=== PATIENT | female | born 1995 | race Hispanic/Latino ===

== ENCOUNTER 2022-01-21 10:08 | Outpatient (CLI) | payer OTHER | END 2022-01-21 10:09 | disposition home or self-care (01) | LOC: CSHULT 10:08 | PROVIDERS: ATTEND Family Medicine | DX: O09.893 Supervision of other high risk pregnancies, third trimester (principal); Z3A.30 30 weeks gestation of pregnancy | CPT/HCPCS: 76805 ==

== ENCOUNTER 2022-03-11 15:21 | Inpatient (IN) | payer MEDICAID, OTHER, SELFPAY ==
[2022-03-11 16:01] VITALS: BMI 28.9
[2022-03-11] MEDS ORDERED: Famotidine/PF 20 mg/2ml Vial SLOW IVP PRN (16:01)
[2022-03-11] MEDS ORDERED: Ondansetron PF 4 MG/2 ML Vial IVP PRN ×3 (16:01→22:11)
[2022-03-11] MEDS ORDERED: CEFAZOLIN 2 GM in Sodium Chloride 0.9% 100 ML IVPB SCH (16:01)
[2022-03-11] MEDS ORDERED: Promethazine HCl 25 MG/ML VIAL IM PRN ×3 (16:01→22:11)
[2022-03-11] MEDS ORDERED: hydrALAZINE 20 MG/ML VIAL SLOW IVP PRN ×2 (16:01→22:11)
[2022-03-11] MEDS ORDERED: Lactated Ringer's 1,000 ML IV SCH (16:01)
[2022-03-11] MEDS ORDERED: Bicitra 30 ML UDCUP PO PRN (16:01)
[2022-03-11 16:13] LABS: Hemoglobin 10.9 g/dL (12.0-15.5); Mean Corpuscular HGB CONC 34.5 g/dL (32.0-36.0); Mean Corpuscular Hemoglobin 31.1 pg (27.0-33.0); Mean Platelet Volume 11.6 fl (7.4-10.4); Platelet Count 213 10x3/uL (150-450); RBC Distribution Width 13.2 % (11.5-14.5); Red Blood Cell (RBC) Count 3.51 10x6/uL (3.90-5.03); White Blood Cell (WBC) Count 7.7 10x3/uL (3.5-10.5)
[2022-03-11 16:46] LABS: HBSAg Index 0.19 S/CO (0-0.99); Hep B Surf Ag Non-Reactive S/CO (NonReactive); Syphilis Antibody Nonreactive (Nonreactive); Syphilis Antibody Index 0.03 S/CO (<1.00 Non-Reactive)
[2022-03-11 18:10] LABS: SARS-CoV-2 NAA Rapid Test Not Detected (NotDetected)
[2022-03-11] MEDS ORDERED: PHENYLEPHRINE-NS 100 MCG/ML 10 ML SYRINGE ONE (18:10)
[2022-03-11] MEDS ORDERED: Phenylephrine 40 MG/NS 250 ML 250 ML ONE (18:10)
[2022-03-11] MEDS ORDERED: Bupivacaine 0.75% W/DEXTROSE 8.25% 2 ML AMP ONE (18:10)
[2022-03-11] MEDS ORDERED: Ondansetron PF 4 MG/2 ML Vial ONE (18:10)
[2022-03-11] MEDS ORDERED: Dexamethasone 4 mg/ml Vial ONE (18:10)
[2022-03-11] MEDS ORDERED: Lidocaine 1% PF 10 ML AMP ONE (18:10)
[2022-03-11] MEDS ORDERED: Ketorolac Tromethamine 30 MG/ML VIAL ONE (18:10)
[2022-03-11] MEDS ORDERED: Oxytocin 10 UNITS/ML VIAL ONE (18:10)
[2022-03-11] MEDS ORDERED: ePHEDrine Sulfate 50 MG/10 ML VIAL ONE (18:10)
[2022-03-11] MEDS ORDERED: Morphine PF 10 MG/10 ML VIAL ONE (18:11)
[2022-03-11] MEDS ORDERED: Fentanyl 100 MCG/2 ML VIAL ONE (18:11)
[2022-03-11] MEDS ORDERED: Communication Order-Pharmacy FS SCH (19:15)
[2022-03-11] MEDS ORDERED: Moisturizing Cream (Eucerin) 113 GM JAR TOP PRN (19:15)
[2022-03-11] MEDS ORDERED: diphenhydrAMINE 50 MG/ML VIAL IVP PRN (19:15)
[2022-03-11] MEDS ORDERED: Promethazine HCl 25 MG SUPP PR PRN (19:15)
[2022-03-11] MEDS ORDERED: Naloxone HCl 0.4 mg/ml Vial IVP PRN ×2 (19:15)
[2022-03-11] MEDS ORDERED: Naloxone HCl 0.4 mg/ml Vial IV PRN (19:15)
[2022-03-11] MEDS ORDERED: Misoprostol 200 MCG TAB PR PRN (22:11)
[2022-03-11] MEDS ORDERED: Simethicone Chewable 80 MG TAB PO PRN (22:11)
[2022-03-11] MEDS ORDERED: diphenhydrAMINE 25 MG CAP PO PRN (22:11)
[2022-03-11] MEDS ORDERED: Boostrix 0.5 ML (Tdap) VIAL (>/=7 yrs of age) IM ONE (22:11)
[2022-03-11] MEDS ORDERED: Methylergonovine 0.2 MG/ML VIAL IM PRN (22:11)
[2022-03-11] MEDS ORDERED: Lanolin Ointment 7 GM TUBE TOP PRN (22:11)
[2022-03-11] MEDS ORDERED: NS w/ Oxytocin 30 units 500 ML IV SCH (22:11)
[2022-03-11] MEDS ORDERED: Ferrous Sulfate 325 MG TAB PO SCH (22:30)
[2022-03-11] MEDS ORDERED: Docusate 100 MG CAP PO SCH (22:30)
[2022-03-12] MEDS: Ketorolac Tromethamine 30 MG/ML VIAL IVP SCH ×3 (00:59→12:42)
[2022-03-12] MEDS ORDERED: Ketorolac Tromethamine 30 MG/ML VIAL IVP SCH (01:00)
[2022-03-12 05:32] LABS: Hemoglobin 10.4 g/dL (12.0-15.5); Mean Corpuscular HGB CONC 34.2 g/dL (32.0-36.0); Mean Corpuscular Hemoglobin 30.5 pg (27.0-33.0); Mean Corpuscular Volume 89.1 fl (81.6-98.3); Mean Platelet Volume 11.5 fl (7.4-10.4); Platelet Count 201 10x3/uL (150-450); Red Blood Cell (RBC) Count 3.41 10x6/uL (3.90-5.03); White Blood Cell (WBC) Count 11.4 10x3/uL (3.5-10.5)
[2022-03-12] MEDS: Docusate 100 MG CAP PO SCH ×2 (09:23→21:18)
[2022-03-12] MEDS: Prenatal Vitamin 1 TAB PO SCH (09:23)
[2022-03-12] MEDS: Ferrous Sulfate 325 MG TAB PO SCH ×2 (09:30→21:07)
[2022-03-12] MEDS: HYDROcodone/Acetaminophen 5/325 mg Tablet PO PRN ×3 (18:19→23:53)
[2022-03-12] MEDS: Ibuprofen 800 MG TAB PO SCH (21:18)
[2022-03-13] MEDS: Ibuprofen 800 MG TAB PO SCH ×3 (05:19→21:19)
[2022-03-13] MEDS: Docusate 100 MG CAP PO SCH ×2 (08:02→21:19)
[2022-03-13] MEDS: Prenatal Vitamin 1 TAB PO SCH (08:02)
[2022-03-13] MEDS: Ferrous Sulfate 325 MG TAB PO SCH ×2 (08:03→21:18)
[2022-03-13] MEDS: HYDROcodone/Acetaminophen 5/325 mg Tablet PO PRN ×2 (08:21→18:21)
[2022-03-14] MEDS: HYDROcodone/Acetaminophen 5/325 mg Tablet PO PRN (03:45)
[2022-03-14] MEDS: Ibuprofen 800 MG TAB PO SCH (05:43)
[2022-03-14 07:42] VITALS: BP 101/62; TEMP 98.2
[2022-03-14] MEDS: Prenatal Vitamin 1 TAB PO SCH (08:28)
[2022-03-14] MEDS: Docusate 100 MG CAP PO SCH (08:28)
[2022-03-14] MEDS: Ferrous Sulfate 325 MG TAB PO SCH (08:29)
== END 2022-03-14 13:10 | disposition home or self-care (01) | DRG 788 ==
LOC: CSHLD 15:21 → CSHPP 21:08
PROVIDERS: ADMIT Family Medicine; ATTEND Family Medicine
PROC: 10D00Z1 Extraction of Products of Conception, Low, Open Approach (ICD-10-PCS; principal; 2022-03-12)
DX: O34.212 Maternal care for vertical scar from previous cesarean delivery (principal); Z3A.39 39 weeks gestation of pregnancy; Z37.0 Single live birth; Z20.822 Contact with and (suspected) exposure to COVID-19
CPT/HCPCS: 36415; 51702; 71045; 85027; 86780; 86850; 86900; 86901; 87340; J1100; J1885; J2001; J2274; J2405; J2590; J3010; J3490; U0002